=== PATIENT | male | born 2000 | race Caucasian/White ===

== ENCOUNTER 2021-03-17 02:24 | Emergency (ER) | payer OTHER ==
[2021-03-17 03:23] VITALS: BP 137/81; PULSE 102; TEMP 98.6; BMI 24.7
[2021-03-17] MEDS ORDERED: ACETAMINOPHEN 500 MG TABLET (FP) PO ONE (03:46)
[2021-03-17] MEDS ORDERED: ONDANSETRON *ODT* 4 MG TABLET SL ONE (03:46)
[2021-03-17] MEDS ORDERED: ACETAMINOPHEN 325 MG TABLET (FP) ONE (04:16)
[2021-03-17] MEDS ORDERED: ONDANSETRON *ODT* 4 MG TABLET ONE (04:18)
[2021-03-17] MEDS ORDERED: SODIUM CHLORIDE 0.9% 500 ML INFUS.BAG IV ONE (04:23)
[2021-03-17 05:38] LABS: BASO % 0.1 % (0-2.0); EOS % 0.2 % (0-4.5); HEMATOCRIT 43.3 % (35.4-49); HEMOGLOBIN 15.2 GM/dL (11.7-16.9); LYMPH % 4.8 % (8-40); MCH 31.1 pg (25.7-33.7); MCHC 35.1 g/dl (32.0-35.9); MEAN CELL VOLUME 88.6 fl (80-96); MEAN PLT VOLUME 8.5 fl (7.5-11.1); MONO % 4.4 % (3.8-10.2); NEUT % 90.5 % (42.8-82.8); PLATELET COUNT 288 10^3/uL (134-434); RBC 4.89 M/mm3 (4.00-5.60); WHITE BLOOD COUNT 13.6 K/mm3 (4.0-10.0)
[2021-03-17 05:59] LABS: CALCIUM 8.6 mg/dL (8.5-10.1)
[2021-03-17 06:00] LABS: ALBUMIN 3.9 g/dl (3.4-5.0); BLOOD UREA NITROGEN 16.2 mg/dL (7-18)
[2021-03-17 06:03] LABS: CREATININE 1.1 mg/dL (0.55-1.3)
[2021-03-17 06:05] LABS: BILIRUBIN,TOTAL 0.9 mg/dL (0.2-1); TOT PROT 7.8 g/dl (6.4-8.2)
== END 2021-03-17 07:21 | disposition home or self-care (01) ==
LOC: JER 02:24
DX: R10.10 Upper abdominal pain, unspecified (principal); R11.2 Nausea with vomiting, unspecified; Z11.52 Encounter for screening for COVID-19
CPT/HCPCS: 36415; 80053; 83690; 85025; 99283-25; C9803; Q0162; U0003; U0005

== ENCOUNTER 2023-06-03 03:33 | Emergency (ER) | payer OTHER ==
[2023-06-03 03:40] VITALS: BP 141/88; PULSE 73; RESP 20; TEMP 98.4; BMI 29.2
[2023-06-03 04:29] LABS: BASO % 0.8 % (0-2.0); EOS % 5.6 % (0-4.5); HEMATOCRIT 43.5 % (35.4-49); HEMOGLOBIN 14.8 GM/dL (11.7-16.9); LYMPH % 32.1 % (8-40); MCH 29.5 pg (25.7-33.7); MCHC 33.9 g/dl (32.0-35.9); MEAN CELL VOLUME 87.1 fl (80-96); MEAN PLT VOLUME 8.2 fl (7.5-11.1); MONO % 7.2 % (3.8-10.2); NEUT % 54.3 % (42.8-82.8); PLATELET COUNT 315 10^3/uL (134-434); RDW 13.4 % (11.9-15.9); WHITE BLOOD COUNT 9.2 K/mm3 (4.0-10.0)
[2023-06-03 04:36] LABS: INR 1.18 (0.83-1.09); PROTHROMBIN TIME (PATIENT) 13.7 SEC (9.7-13.0)
[2023-06-03 04:49] LABS: POTASSIUM 3.7 mmol/L (3.5-5.1)
[2023-06-03 04:51] LABS: CALCIUM 8.8 mg/dL (8.5-10.1)
[2023-06-03 04:52] LABS: ALBUMIN 3.7 g/dl (3.4-5.0); BLOOD UREA NITROGEN 13.3 mg/dL (7-18)
[2023-06-03 04:55] LABS: CREATININE 0.9 mg/dL (0.55-1.3)
[2023-06-03 04:56] LABS: BILIRUBIN,TOTAL 0.4 mg/dL (0.2-1); TOT PROT 7.4 g/dl (6.4-8.2)
[2023-06-03] MEDS ORDERED: POTASSIUM CHLORIDE TABS 20 MEQ TABLET.ER (FP) PO ONE ×2 (04:56→05:43)
[2023-06-03] MEDS ORDERED: MAGNESIUM SULF 50% (8.12 MEQ/2 ML-1 GM VIAL) IVPB ONE (04:56)
[2023-06-03] MEDS ORDERED: MAGNESIUM SULFATE IN WATER 2 GM/50 ML IVPB IVPB ONE (05:43)
== END 2023-06-03 06:48 | disposition home or self-care (01) ==
LOC: JER 03:33
PROC: 3E033GC Introduction of Other Therapeutic Substance into Peripheral Vein, Percutaneous Approach (ICD-10-PCS; principal; 2023-06-03)
DX: R20.2 Paresthesia of skin (principal); M25.572 Pain in left ankle and joints of left foot; G51.9 Disorder of facial nerve, unspecified
CPT/HCPCS: 36415; 70450-TC; 80053; 85025; 85610; 93005; 93010; 99285-25

== ENCOUNTER 2023-06-16 23:54 | Emergency (ER) | payer OTHER ==
[2023-06-16 23:59] VITALS: BP 133/80; PULSE 68; RESP 17; TEMP 97.5; BMI 29.2
[2023-06-17 01:41] LABS: ALBUMIN 3.8 g/dl (3.4-5.0); BLOOD UREA NITROGEN 14.5 mg/dL (7-18); CALCIUM 8.8 mg/dL (8.5-10.1); MAGNESIUM 1.9 mg/dL (1.8-2.4)
[2023-06-17 01:46] LABS: BILIRUBIN,TOTAL 0.4 mg/dL (0.2-1); TOT PROT 7.9 g/dl (6.4-8.2)
== END 2023-06-17 02:37 | disposition home or self-care (01) ==
LOC: JER 23:54
DX: R20.2 Paresthesia of skin (principal)
CPT/HCPCS: 36415; 71045-TC-FY; 80053; 82607; 83735; 99284-25

== ENCOUNTER 2023-07-15 03:26 | Emergency (ER) | payer OTHER ==
[2023-07-15 03:43] VITALS: BP 138/86; PULSE 85; RESP 20; TEMP 99.5; BMI 29.5
[2023-07-15] MEDS ORDERED: IBUPROFEN 400 MG TABLET (FP) PO ONE ×2 (04:03→04:15)
[2023-07-15] MEDS ORDERED: AMOX TR/POT CLAV 875MG/125MG TABLETS (FP) PO ONE (04:33)
[2023-07-15] MEDS ORDERED: AMOX TR/POT CLAV 875MG/125MG TABLETS (FP) ONE (04:35)
== END 2023-07-15 04:58 | disposition home or self-care (01) ==
LOC: JER 03:26
DX: R50.9 Fever, unspecified (principal); R51.9 Headache, unspecified; K08.89 Other specified disorders of teeth and supporting structures; B34.9 Viral infection, unspecified; J01.90 Acute sinusitis, unspecified; U07.1 COVID-19
CPT/HCPCS: 0241U-QW; 99283-25